=== PATIENT | male | born 1970 | race Caucasian/White ===

== ENCOUNTER 2016-10-28 09:51 | Observation (INO) | payer OTHER ==
[~2016-10-28] VITALS: Ht 177.8 cm; Wt 147.6 kg
[~2016-10-28 09:51] MED LIST: PREDNISONE10 M1 PO; PREDNISONE50 MG PO; VENTOLIN HFA18 GM IH; ZITHROMAX Z-PA250 MG PO
[2016-10-28 10:53] LABS: HEMATOCRIT 46.9 % (38.0-50.0); MCH 30.6 PG (29.0-34.0); MCHC 34.5 G/DL (30.0-36.0); MCV 88.7 FL (86-99); MEAN PLAT.VOLUME 11.1 uM^3 (9.0-12.4); PLATELET COUNT 185 K/uL (156-360); RBC DIS.WIDTH-CV 13.4 % (11.8-14.6); RBC DIS.WIDTH-SD 43.4 % (39-53); RED BLOOD COUNT 5.29 M/uL (4.00-5.50); WHITE BLOOD COUNT 6.5 K/uL (4.1-10.2)
[2016-10-28 11:02] LABS: INFLUENZA A VIRAL ANTIGEN NEGATIVE; INFLUENZA B VIRAL ANTIGEN POSITIVE
[2016-10-28 11:05] LABS: CHLORIDE 107 mEq/L (99-109); POTASSIUM 3.8 mEq/L (3.7-5.4); SODIUM 141 mEq/L (136-147)
[2016-10-28 11:06] LABS: GLUCOSE 109 mg/dL (70-99)
[2016-10-28 11:08] LABS: ANION GAP 12 MEQ/L (2-14)
[2016-10-28 11:10] LABS: GFR ESTIMATE (CALCULATED) > 59 mL/min/
[2016-10-28 11:11] LABS: UREA NITROGEN (BUN) 7 mg/dL (9-23)
[2016-10-28] MEDS ORDERED: TYLENOL REGULA325 MG PO (11:47)
[2016-10-28] MEDS ORDERED: MULTI-VITAMIN1 EAC4 PO (11:48)
[2016-10-28] MEDS ORDERED: MOTRIN IB200 MG PO (11:48)
[2016-10-28] MEDS ORDERED: OCEAN NASAL 0.645 ML BOTH NARES (11:49)
[2016-10-28] MEDS ORDERED: ASCORBIC ACID250 MG PO (11:49)
[2016-10-28 12:54] LABS: TROP-I INTERPRETATION NEGATIVE; TROPONIN-I 0.02 ng/mL (0.0-0.30)
[2016-10-28 13:04] LABS: Estimated Average Glucose 117 mg/dL (70-123); HEMOGLOBIN A1c (GLYCOHEMOGLOB) 5.7 % HGB (Below 5.7)
[2016-10-28 14:37] VITALS: BP 130/70
[2016-10-28 19:07] LABS: TROP-I INTERPRETATION NEGATIVE; TROPONIN-I 0.02 ng/mL (0.0-0.30)
[2016-10-28 20:00] VITALS: BP 139/69
[2016-10-29 00:26] VITALS: BP 131/71
[2016-10-29 04:17] VITALS: BP 109/53
[2016-10-29 06:24] LABS: ANION GAP 10 MEQ/L (2-14); CHLORIDE 104 MEQ/L (99-109); GFR ESTIMATE (CALCULATED) > 59 mL/min/; GLUCOSE 123 mg/dL (70-99); POTASSIUM 4.1 MEQ/L (3.7-5.4); SAMPLE HEMOLYSIS CHECK 0; SAMPLE ICTERIC CHECK 0; SAMPLE LIPEMIA CHECK 0; SODIUM 139 MEQ/L (136-147); UREA NITROGEN (BUN) 10 mg/dL (9-23)
[2016-10-29 08:10] VITALS: BP 144/76
[2016-10-29] MEDS ORDERED: OSELTAMIVIR PHO75 MG PO (09:21)
[2016-10-29] MEDS ORDERED: AZITHROMYCIN500 M1 PO (09:23)
[2016-10-29] MEDS ORDERED: VENTOLIN HFA18 GM IH (09:23)
[2016-10-29] MEDS ORDERED: PREDNISONE10 MG PO (09:23)
[2016-10-29] MEDS ORDERED: PHENERGAN DM SYR1 ML PO (09:24)
== END 2016-10-29 12:05 | disposition home or self-care (01) ==
LOC: EME 09:51 → EDOF 11:49 → 5WEST 11:49
PROVIDERS: Emergency Medicine; Internal Medicine
DX: J10.1 Influenza due to other identified influenza virus with other respiratory manifestations (principal); R06.2 Wheezing; J40 Bronchitis, not specified as acute or chronic; E66.01 Morbid (severe) obesity due to excess calories; Z68.42 Body mass index [BMI] 45.0-49.9, adult; F17.200 Nicotine dependence, unspecified, uncomplicated; R19.7 Diarrhea, unspecified; Z88.0 Allergy status to penicillin; Z83.3 Family history of diabetes mellitus
CPT/HCPCS: 71020; 80048; 83036; 84443; 84484; 85027; 87040; 87502; 93005; 94640; 94640 76; 99281; 99285; G0378; J1650; J2920; J7030

== ENCOUNTER 2017-01-10 13:53 | Emergency (ER) | payer OTHER ==
[~2017-01-10] VITALS: Ht 182.9 cm; Wt 139.6 kg
[~2017-01-10 13:53] MED LIST changes: +ASCORBIC ACID250 MG PO; +AZITHROMYCIN500 M1 PO; +MOTRIN IB200 MG PO; +MULTI-VITAMIN1 EAC4 PO; +OCEAN NASAL 0.645 ML BOTH NARES; +OSELTAMIVIR PHO75 MG PO; +PHENERGAN DM SYR1 ML PO; +PREDNISONE10 MG PO; +TYLENOL REGULA325 MG PO
[2017-01-10 14:42] LABS: HEMATOCRIT 49.2 % (38.0-50.0); MCH 30.1 PG (29.0-34.0); MCHC 33.7 G/DL (30.0-36.0); MCV 89.1 FL (86-99); MEAN PLAT.VOLUME 11.1 uM^3 (9.0-12.4); PLATELET COUNT 262 K/uL (156-360); RBC DIS.WIDTH-CV 12.8 % (11.8-14.6); RBC DIS.WIDTH-SD 42.2 % (39-53); RED BLOOD COUNT 5.52 M/uL (4.00-5.50); WHITE BLOOD COUNT 10.2 K/uL (4.1-10.2)
[2017-01-10 15:03] LABS: TROP-I INTERPRETATION NEGATIVE; TROPONIN-I < 0.01 ng/mL (0.0-0.30)
[2017-01-10 16:18] LABS: CHLORIDE 107 mEq/L (99-109); POTASSIUM 3.9 mEq/L (3.7-5.4); SODIUM 139 mEq/L (136-147)
[2017-01-10 16:20] LABS: GLUCOSE 85 mg/dL (70-99)
[2017-01-10 16:21] LABS: ANION GAP 9 MEQ/L (2-14)
[2017-01-10 16:24] LABS: GFR ESTIMATE (CALCULATED) > 59 mL/min/
[2017-01-10 16:25] LABS: UREA NITROGEN (BUN) 10 mg/dL (9-23)
[2017-01-10] MEDS ORDERED: FIORICET,ESG1 TABLET PO (20:26)
[2017-01-10] MEDS ORDERED: LIDOCAINE700 MG TD (20:27)
[2017-01-10] MEDS ORDERED: FLEXERIL10 MG PO (20:27)
[2017-01-10 20:33] VITALS: BP 126/91
[2017-01-10] MEDS ORDERED: ZITHROMAX Z-PA250 MG PO (20:53)
== END 2017-01-10 20:58 | disposition home or self-care (01) ==
LOC: EME 13:53
DX: R51 Headache (principal); M62.830 Muscle spasm of back; M54.2 Cervicalgia; M25.512 Pain in left shoulder; H92.02 Otalgia, left ear; H53.8 Other visual disturbances; J32.2 Chronic ethmoidal sinusitis; Z87.891 Personal history of nicotine dependence
CPT/HCPCS: 70450; 71020; 80048; 84484; 85027; 93005; 99281; 99285